=== PATIENT | female | born 1965 | race Caucasian/White ===

== ENCOUNTER 2022-02-10 06:26 | Day surgery (SDC) | payer OTHER, SELFPAY ==
[2022-01-28 10:03] VITALS: BMI 20.3
[2022-02-10 06:40] VITALS: BP 132/91; PULSE 108; RESP 18; TEMP 37.2; O2SAT 100
--- NOTE | 2022-02-10 07:20 | P.PNAN_ITS ---
Anes - Initial Pre Proc Eval Procedure: Operation Date: 02/10/22 08:00 Proposed Procedures p Diagnostic Colonoscopy - Micah Ovalle MD Date/Time: 02/10/22 07:20 Surgeon: Micah Ovalle MD Pre Op Diagnosis: Positive Cologard Patient Data Age: 56 Gender: F Height: 1.63 m Weight: 52.4 kg Allergies Allergy/AdvReac Type Severity Reaction Status Date / Time Penicillins AdvReac Unknown Vomiting Verified 02/10/22 06:37 ANTIHISTAMINE AdvReac Unknown Jittery Uncoded 02/10/22 06:37 Home Medications Medication Instructions Recorded Confirmed Type alprazolam 0.25 mg tablet (Xanax) 0.25 mg PO PRN PRN Anxiety 01/28/22 01/28/22 History Patient hx anesthesia problems: none Family hx anesthesia problems: none Results Review: All pre-operative results and documents have been reviewed as part of the pre- operative evaluation. PMFSH Past Medical History Medical History Anxiety Social History Social History Smoking status: Never smoker Alcohol intake: current Substance use type: does not use Living arrangements: with family Spiritual care concerns: No Anes - Eval Final PreProcedure Day of Procedure 02/10/22 07:20 Patient weight: normal Heart: regular rate and rhythm Lungs: clear to auscultation Airway: Mallampati scale class II Neurological: alert and oriented Last oral intake: >/= 8 hours ASA classification: I Emergent: no Anesthetic plan: proceed Anesthesia type and monitoring: general GIVS and standard monitoring Results Review: All pre-operative results and documents have been reviewed as part of the pre- operative evaluation. Informed Consent: The patient's anesthetic plan and its attendant risks and benefits were discussed with the patient/family/POA. Questions were solicited and answers provided to the satisfaction of the patient/family/POA.
[2022-02-10] MEDS: LACTATED RINGERS 1,000 ML 150 ML IV CONT (07:22)
--- NOTE | 2022-02-10 07:45 | PM.HPGS ---
History of Present Illness History of Present Illness Consent: Risks, benefits, and alternatives have been discussed and questions answered. Patient agrees to proceed with procedure. Chief complaint: Positive Cologard Narrative: Selena Shearer is a 56 year old female here for first colonoscopy, had positive cologuard Review of Systems Constitutional: Constitutional: Denies headache(s) and Denies weakness Eyes: Eyes: Denies blurry vision ENT: Reports Normal hearing present, Denies headache(s) and Denies neck pain Cardiovascular: Cardiovascular: Denies chest pain and Denies dyspnea Respiratory: Respiratory: Denies dyspnea Gastrointestinal: Gastrointestinal: Reports no additional gastrointestinal complaints Genitourinary: Genitourinary: Denies dysuria Musculoskeletal: Musculoskeletal: Denies neck pain Integumentary/Breasts: Skin/Breast: Denies dry skin Neurologic: Reports Normal hearing present, Denies headache(s) and Denies weakness Psychiatric: Psychiatric: Denies anxiety Endocrine: Endocrine: Denies change in body appearance Hematologic/Lymphatic: Hematologic/Lymphatic: Denies easy bleeding Allergic/Immunologic: Allergic/Immunologic: Denies urticaria PMFSH Past Medical History Medical History (Updated 02/10/22 @ 07:46 by Micah Ovalle MD) Anxiety Positive colorectal cancer screening using Cologuard test Social History Social History Smoking status: Never smoker Alcohol intake: current Substance use type: does not use Living arrangements: with family Spiritual care concerns: No Meds Home Medications and Allergies Home Medications Medication Instructions Recorded Confirmed Type alprazolam 0.25 mg tablet (Xanax) 0.25 mg PO PRN PRN Anxiety 01/28/22 01/28/22 History Allergies Allergy/AdvReac Type Severity Reaction Status Date / Time Penicillins AdvReac Unknown Vomiting Verified 02/10/22 06:37 ANTIHISTAMINE AdvReac Unknown Jittery Uncoded 02/10/22 06:37 Vital Signs Vital Signs - 24 hr 02/10/22 06:40 Temperature 98.9 F Pulse Rate 108 H Respiratory Rate 18 Blood Pressure 132/91 H Pulse Oximetry 100 Oxygen Delivery Room Air Exam Const: General: comfortable and no acute distress HENMT: Face/Nose/Sinus: Normal nares present Eyes: General: appearance normal, both eyes and all related structures Neck: Neck: no JVD Resp: Auscultation: clear to auscultation bilaterally Cardio: Rate: regular rate Rhythm: regular rhythm GI: Inspection: non-distended GI Palp: Yes Soft to palpation Skin: General skin exam: normal color Neuro: General: gait normal Speech: normal speech Extrem: General: normal to inspection Psych: Mental Status: mental status grossly normal Assessment and Plan Assessment and plan (1) Positive colorectal cancer screening using Cologuard test: Code(s): R19.5 - Other fecal abnormalities Status: Acute Assessment and Plan: colonoscopy
[2022-02-10 08:05] VITALS: BP 113/73; PULSE 76; RESP 14; O2SAT 99
[2022-02-10 08:15] VITALS: BP 115/74; PULSE 89; RESP 14; O2SAT 99
--- NOTE | 2022-02-10 08:21 | WPDANESPN ---
Anes - Prog Note Post-Op Date/Time: 02/10/22 08:21 Cardiovascular status: normal Respiratory status: normal Airway patency: baseline Post-Op hydration status: normal Vital Signs: Last Vital Signs Temp 37.2 C 02/10/22 06:40 Pulse 89 02/10/22 08:15 Resp 14 02/10/22 08:15 BP 115/74 02/10/22 08:15 Pulse Ox 99 02/10/22 08:15 O2 Del Method Room Air 02/10/22 08:15 Pain Score (VAS): 0/10 I/O: Intake & Output 02/09/22 02/10/22 02/10/22 23:59 07:59 15:59 Intake Total 400 Balance 400 Patient Feedback: Patient satisfied with anesthetic care.
[2022-02-10 08:25] VITALS: BP 121/72; PULSE 71; RESP 13; O2SAT 100
== END 2022-02-10 08:50 | disposition home or self-care (01) ==
PROVIDERS: PCP Physician Assistant; Visit Provider Internal Medicine Gastroenterology
PROC: 0DJD8ZZ Inspection of Lower Intestinal Tract, Via Natural or Artificial Opening Endoscopic (ICD-10-PCS; CPT 45378; principal; 2022-02-10 08:00)
DX: R19.5 Other fecal abnormalities (principal)
CPT/HCPCS: 45378